=== PATIENT | female | born 1975 | race American Indian/Alaskan Native ===

== ENCOUNTER 2017-04-08 20:33 | Emergency (ER) | payer MEDICAID ==
[~2017-04-08] VITALS: Ht 172.7 cm; Wt 114.2 kg
[~2017-04-08 20:33] MED LIST: DIAZ5TAB PO; HYDR-3240 PO; LEVO500T33 PO
[2017-04-08 20:35] VITALS: BP 126/88
== END 2017-04-08 22:11 | disposition home or self-care (01) ==
LOC: ED 22:05
DX: S93.491A Sprain of other ligament of right ankle, initial encounter (principal); E11.9 Type 2 diabetes mellitus without complications; F17.210 Nicotine dependence, cigarettes, uncomplicated; X50.1XXA Overexertion from prolonged static or awkward postures, initial encounter; Y93.89 Activity, other specified; Y92.89 Other specified places as the place of occurrence of the external cause; Y99.8 Other external cause status
CPT/HCPCS: 99284

== ENCOUNTER 2017-04-28 16:28 | Emergency (ER) | payer MEDICAID ==
[~2017-04-28] VITALS: Ht 167.6 cm; Wt 114.0 kg
[2017-04-28 17:12] LABS: BLOOD UREA NITROGEN 8 mg/dL (7-18)
[2017-04-28 17:16] LABS: ACETAMINOPHEN < 2 mcg/mL (10-30)
[2017-04-28 17:20] LABS: DAU SCREEN DISCLAIMER
[2017-04-28 23:47] VITALS: BP 155/89
== END 2017-04-29 00:07 | disposition home or self-care (01) ==
LOC: ED 17:00
DX: T14.91 Suicide attempt (principal); F32.9 Major depressive disorder, single episode, unspecified; F41.9 Anxiety disorder, unspecified; F10.120 Alcohol abuse with intoxication, uncomplicated; E11.9 Type 2 diabetes mellitus without complications; F17.200 Nicotine dependence, unspecified, uncomplicated; X78.1XXA Intentional self-harm by knife, initial encounter; Y93.89 Activity, other specified; Y92.89 Other specified places as the place of occurrence of the external cause; Y99.8 Other external cause status
CPT/HCPCS: 36415; 80048; 80307; 80329; 82040; 84703; 85025; 99284; G0480

== ENCOUNTER 2018-05-03 09:18 | Emergency (ER) | payer MEDICAID ==
[~2018-05-03] VITALS: Ht 167.6 cm; Wt 107.0 kg
[~2018-05-03 09:18] MED LIST changes: -LEVO500T33 PO; +LEVO500T47 PO
[2018-05-03 09:46] VITALS: BP 120/70
[2018-05-03] MEDS ORDERED: KETOROLAC 30 MG/1 ML IM ONE (10:00)
[2018-05-03] MEDS ORDERED: CYCLOBENZAPRINE 10 MG TABLET PO ONE (10:00)
[2018-05-03] MEDS ORDERED: KETOROLAC 30 MG/1 ML ONE (10:06)
[2018-05-03] MEDS ORDERED: CYCLOBENZAPRINE 10 MG TABLET ONE (10:06)
[2018-05-03 10:29] LABS: TROPONIN I < 0.015 ng/mL (0.000-0.045)
== END 2018-05-03 11:29 | disposition home or self-care (01) ==
LOC: ED 11:23
DX: R07.89 Other chest pain (principal); S29.012A Strain of muscle and tendon of back wall of thorax, initial encounter; E11.9 Type 2 diabetes mellitus without complications; F41.1 Generalized anxiety disorder; F32.9 Major depressive disorder, single episode, unspecified; F17.200 Nicotine dependence, unspecified, uncomplicated; X58.XXXA Exposure to other specified factors, initial encounter; Y93.89 Activity, other specified; Y99.8 Other external cause status; Y92.89 Other specified places as the place of occurrence of the external cause
CPT/HCPCS: 36415; 71046; 84484; 93005; 96372; 99285; J1885

== ENCOUNTER 2019-03-04 20:09 | Emergency (ER) | payer MEDICAID ==
[~2019-03-04] VITALS: Ht 167.6 cm; Wt 120.0 kg
[2019-03-04 20:16] VITALS: BP 156/90
--- NOTE | 2019-03-04 21:01 | NUR ---
Back from CT, pt anxious, cooperative
--- NOTE | 2019-03-04 21:20 | NUR ---
Pt given gown to put on for pelvic exam. MD notified pt ready
== END 2019-03-04 22:19 | disposition home or self-care (01) ==
LOC: ED 22:07
DX: S20.211A Contusion of right front wall of thorax, initial encounter (principal); S09.8XXA Other specified injuries of head, initial encounter; F17.200 Nicotine dependence, unspecified, uncomplicated; E11.9 Type 2 diabetes mellitus without complications; T74.21XA Adult sexual abuse, confirmed, initial encounter; Y93.89 Activity, other specified; Y92.009 Unspecified place in unspecified non-institutional (private) residence as the place of occurrence of the external cause; Y99.8 Other external cause status
CPT/HCPCS: 70450; 99284

== ENCOUNTER 2019-03-26 18:35 | Emergency (ER) | payer MEDICAID ==
[~2019-03-26] VITALS: Ht 172.7 cm; Wt 120.0 kg
[2019-03-26] MEDS ORDERED: LORazepam 2 MG/ML, 1ML ONE (18:42)
[2019-03-26] MEDS ORDERED: DIPHENHYDRAMINE 50 MG/ML, 1ML ONE (18:42)
[2019-03-26] MEDS ORDERED: LIDOCAINE-MPF 1%, 5ML ONE (18:48)
[2019-03-26] MEDS ORDERED: LORazepam 2 MG/ML, 1ML IM ONE (19:00)
[2019-03-26] MEDS ORDERED: DIPHENHYDRAMINE 50 MG/ML, 1ML IM ONE (19:00)
[2019-03-26] MEDS ORDERED: PLEASE ENTER HEIGHT AND WEIGHT MC SCH (19:00)
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
[2019-03-26] MEDS ORDERED: NEOSPORIN OINT. PKT 1 PACKET ONE (19:42)
[2019-03-26] MEDS ORDERED: DIPH,PERTUSS(ACELL),TET VAC/PF 0.5 ML IM-VACC ONE ×2 (19:47→20:00)
[2019-03-26] MEDS ORDERED: LIDOCAINE-MPF 1%, 5ML INFIL ONE (20:00)
[2019-03-26] MEDS ORDERED: NEOSPORIN OINT. PKT 1 PACKET TP ONE (20:00)
--- NOTE | 2019-03-26 20:02 | NUR ---
PT CALM AND COOPERATIVE AT THIS TIME. RESTING WITH EYES CLOSED IN GURNEY. SIDE RAILS UP X2 FOR SAFETY. SUTURES COMPLETE. AWAITING NEOSPORIN FROM PHARMACY FOR DRESSING.
--- NOTE | 2019-03-26 21:56 | NUR ---
PT CALM AND COOPERATIVE AT THIS TIME. RESTING WITH EYES CLOSED IN GURNEY. SIDE RAILS UP X2 FOR SAFETY. PT IS NT CURRENTLY STABLE ON FEET AND CANNOT PERFORM ADLS. PLAN TO DC ONCE ABLE.
[2019-03-26 21:57] VITALS: BP 132/94
--- NOTE | 2019-03-26 22:10 | NUR ---
BEDSIDE REPORT FROM [facility]. PT LAYING IN GURNEY, PT MOSTLY DROWSY, MUMBLING TO SELF. WOUND CARE COMPLETE, BLEEDING APPEARS CONTROLED AT THIS TIME. BP/SPO2 MONITORING IN PLACE.
--- NOTE | 2019-03-27 00:25 | NUR ---
PT RESTING IN GURNEY, EVEN/REGULAR RESPIRATIONS NOTED. PT WITH FREQUENT MOANING AND KICKING LEGS. PT REMAINS MOSTLY DROWSY. BLEEDING REMAINS CONTROLED.
--- NOTE | 2019-03-27 00:41 | NUR ---
PT AMBULATED STEADILY TO BATHROOM WITH RN. DC EDUCATION PROVIDED, PT DEMONSTRATES UNDERSTANDING. PT TRANSFERED SELF TO WHEELCHAIR. PT WHEELED TO DC WITH RN. TAXI VOUCHER PROVIDED. PT REPORTS THAT SO IS HOME AND WILL CARE FOR HER ONCE SHE ARRIVES HOME.
== END 2019-03-27 00:44 | disposition home or self-care (01) ==
LOC: ED 19:17
DX: S61.412A Laceration without foreign body of left hand, initial encounter (principal); S61.411A Laceration without foreign body of right hand, initial encounter; F31.9 Bipolar disorder, unspecified; E11.9 Type 2 diabetes mellitus without complications; F17.200 Nicotine dependence, unspecified, uncomplicated; W01.118A Fall on same level from slipping, tripping and stumbling with subsequent striking against other sharp object, initial encounter; Y93.89 Activity, other specified; Y92.098 Other place in other non-institutional residence as the place of occurrence of the external cause; Y99.8 Other external cause status
CPT/HCPCS: 12041; 73130; 90471; 90715; 96372; 99285; J1200; J2060

== ENCOUNTER → 2020-05-21 | Outpatient (CLI) | payer MEDICAID | END | disposition home or self-care (01) | LOC: RAD 08:31 | PROVIDERS: ATTEND Internal Medicine | DX: S62.306A Unspecified fracture of fifth metacarpal bone, right hand, initial encounter for closed fracture (principal); X58.XXXA Exposure to other specified factors, initial encounter; Y93.89 Activity, other specified; Y92.89 Other specified places as the place of occurrence of the external cause; Y99.8 Other external cause status ==

== ENCOUNTER 2021-04-04 15:33 | Emergency (ER) | payer MEDICAID, OTHER ==
[~2021-04-04] VITALS: Ht 167.6 cm; Wt 143.5 kg
[~2021-04-04 15:33] MED LIST changes: +HYDR-2214 PO; -HYDR-3240 PO
--- NOTE | 2021-04-04 16:01 | NUR ---
PT HAS CO ABDOMINAL PAIN AND SWELLING AFTER EATING FOR A FEW WEAKS. DENIES CP, HAS N/V. STATES SHE IS SOB W ACTIVITY. HX DM2, HTN
[2021-04-04 16:34] LABS: BASOPHILS % (AUTO) 1 % (0-1); EOSINOPHILS % (AUTO) 7 % (1-7); LYMPHOCYTES % (AUTO) 24 % (22-44); MEAN CORPUSCULAR HEMOGLOBIN 32.5 pg (27.0-34.8); MEAN CORPUSCULAR HGB CONC 34.4 g/dL (32.4-35.8); MEAN PLATELET VOLUME 8.6 fL (7.4-10.4); MONOCYTES % (AUTO) 6 % (2-9); NEUTROPHILS % (AUTO) 63 % (42-75); PLATELET COUNT 356 x10^3/uL (130-400); RED BLOOD COUNT 4.66 x10^6/uL (3.82-5.3); RED CELL DISTRIBUTION WIDTH 13.4 % (9.6-15.2)
[2021-04-04 16:42] LABS: ALANINE AMINOTRANSFERASE 81 U/L (12-78); ALBUMIN 3.3 g/dL (3.4-5.0); ANION GAP 6 mmol/L (5-15); CALCIUM 8.5 mg/dL (8.5-10.1); CHLORIDE 106 mmol/L (98-107); CREATININE 0.62 mg/dL (0.55-1.02)
[2021-04-04 16:44] LABS: ALKALINE PHOSPHATASE 134 U/L (45-117); BILIRUBIN,TOTAL 0.2 mg/dL (0.2-1.0); TOTAL PROTEIN 7.2 g/dL (6.4-8.2)
--- NOTE | 2021-04-04 17:23 | NUR ---
Patient/Caregiver given discharge instructions and they have confirmed that they understand the instructions. Patient ambulatory with steady gait.
[2021-04-04 17:24] VITALS: BP 150/82
== END 2021-04-04 17:35 | disposition home or self-care (01) ==
LOC: ED 17:30
DX: K80.70 Calculus of gallbladder and bile duct without cholecystitis without obstruction (principal); E11.65 Type 2 diabetes mellitus with hyperglycemia; I10 Essential (primary) hypertension; G89.29 Other chronic pain; F17.210 Nicotine dependence, cigarettes, uncomplicated
CPT/HCPCS: 36415; 76700; 80053; 83605; 83690; 85025; 99284

== ENCOUNTER 2021-05-18 13:00 | Inpatient (IN) | payer MEDICAID ==
[~2021-05-18] VITALS: Ht 167.6 cm; Wt 143.0 kg
--- NOTE | 2021-05-18 13:19 | NUR ---
PT CHANGING INTO A GOWN. SBAR EXCHANGED W EMS AT THE BEDSIDE
--- NOTE | 2021-05-18 13:27 | NUR ---
pt ambulated to the restroom with a steady gait. urine sample provided and walked to the lab for analysis.
[2021-05-18] MEDS ORDERED: ONDANSETRON 2MG/ML, 2ML ONE (13:56)
[2021-05-18] MEDS ORDERED: HYDROmorphone 2 MG/ML, 1ML ONE ×2 (13:56→18:08)
[2021-05-18] MEDS ORDERED: HYDROmorphone 1 MG/ML, 1ML INJ IV ONE (14:00)
[2021-05-18] MEDS ORDERED: SODIUM CHLORIDE FLUSH 10ML SYR IVF ONE (14:00)
[2021-05-18] MEDS ORDERED: ONDANSETRON 2MG/ML, 2ML IVPush ONE (14:00)
[2021-05-18] MEDS ORDERED: SODIUM CHLORIDE 0.9% 1,000ML IVBOLUS ONE (14:00)
[2021-05-18 14:11] LABS: BASOPHILS % (AUTO) 1 % (0-1); EOSINOPHILS % (AUTO) 8 % (1-7); LYMPHOCYTES % (AUTO) 23 % (22-44); MEAN CORPUSCULAR HEMOGLOBIN 32.8 pg (27.0-34.8); MEAN CORPUSCULAR HGB CONC 34.2 g/dL (32.4-35.8); MEAN PLATELET VOLUME 8.8 fL (7.4-10.4); MONOCYTES % (AUTO) 6 % (2-9); NEUTROPHILS % (AUTO) 63 % (42-75); PLATELET COUNT 349 x10^3/uL (130-400); RED BLOOD COUNT 4.75 x10^6/uL (3.82-5.3); RED CELL DISTRIBUTION WIDTH 13.8 % (9.6-15.2)
--- NOTE | 2021-05-18 14:11 | NUR ---
[facility] IS AT THE BEDSIDE FOR STUDY.
[2021-05-18 14:16] LABS: MICROSCOPIC NOT IND
[2021-05-18 14:24] LABS: ALANINE AMINOTRANSFERASE 89 U/L (12-78); ALBUMIN 3.1 g/dL (3.4-5.0); ANION GAP 8 mmol/L (5-15); CALCIUM 8.8 mg/dL (8.5-10.1); CHLORIDE 104 mmol/L (98-107); CREATININE 0.65 mg/dL (0.55-1.02)
[2021-05-18 14:26] LABS: ALKALINE PHOSPHATASE 137 U/L (45-117); BILIRUBIN,TOTAL 0.3 mg/dL (0.2-1.0); TOTAL PROTEIN 7.4 g/dL (6.4-8.2)
[2021-05-18] MEDS ORDERED: INSULIN REGULAR 100 UNITS/ML, 3ML VIAL SQ-INSULIN ONE (15:37)
[2021-05-18] MEDS ORDERED: INSULIN SINGLE DOSE, ER ONE (15:42)
[2021-05-18] MEDS ORDERED: POLYETHYLENE GLYCOL 17 GM PACKET PO PRN (17:30)
[2021-05-18] MEDS ORDERED: ONDANSETRON 2MG/ML, 2ML IVPush PRN (17:30)
[2021-05-18] MEDS ORDERED: KETOROLAC 30 MG/1 ML IV PRN (17:30)
[2021-05-18] MEDS ORDERED: METRONIDAZOLE PMX 500MG/100ML 100 ML ONE (18:08)
[2021-05-18] MEDS ORDERED: INSULIN LISPRO SINGLE DOSE, ER SQ-INSULIN ONE (18:09)
[2021-05-18] MEDS: METRONIDAZOLE PMX 500MG/100ML 100 ML IV SCH ×2 (18:17→23:51)
[2021-05-18] MEDS: CEFTRIAXONE 2 GM in DEXTROSE 5% 50 ML IVPB SCH (18:17)
[2021-05-18] MEDS: INSULIN LISPRO 100 UNITS/ML, PEN SQ-INSULIN SCH ×2 (18:18→22:59)
[2021-05-18] MEDS: HYDROmorphone 2 MG/ML, 1ML IVPush PRN ×2 (18:19→23:53)
[2021-05-18] MEDS: NICOTINE 14MG/24 HR PATCH.TD24 TD SCH (20:30)
[2021-05-18 20:32] VITALS: BP 136/86
[2021-05-18] MEDS ORDERED: MELATONIN 5 MG TABLET PO PRN (21:00)
[2021-05-18] MEDS ORDERED: TRAZODONE 50MG TABLET PO PRN (21:00)
[2021-05-19 01:22] VITALS: BP 114/65
[2021-05-19] MEDS: METRONIDAZOLE PMX 500MG/100ML 100 ML IV SCH ×4 (05:09→23:58)
[2021-05-19] MEDS: HYDROmorphone 2 MG/ML, 1ML IVPush PRN ×2 (05:09→10:07)
[2021-05-19 05:55] LABS: ALBUMIN 2.9 g/dL (3.4-5.0); ANION GAP 5 mmol/L (5-15); CALCIUM 8.9 mg/dL (8.5-10.1); CHLORIDE 105 mmol/L (98-107)
[2021-05-19 05:59] LABS: ALANINE AMINOTRANSFERASE 103 U/L (12-78); ALKALINE PHOSPHATASE 96 U/L (45-117); BILIRUBIN,TOTAL 0.4 mg/dL (0.2-1.0); CREATININE 0.55 mg/dL (0.55-1.02); TOTAL PROTEIN 6.8 g/dL (6.4-8.2)
[2021-05-19 06:02] LABS: BASOPHILS % (AUTO) 1 % (0-1); EOSINOPHILS % (AUTO) 9 % (1-7); LYMPHOCYTES % (AUTO) 21 % (22-44); MEAN CORPUSCULAR HEMOGLOBIN 32.2 pg (27.0-34.8); MEAN CORPUSCULAR HGB CONC 33.5 g/dL (32.4-35.8); MEAN PLATELET VOLUME 8.6 fL (7.4-10.4); MONOCYTES % (AUTO) 6 % (2-9); NEUTROPHILS % (AUTO) 64 % (42-75); PLATELET COUNT 321 x10^3/uL (130-400); RED BLOOD COUNT 4.57 x10^6/uL (3.82-5.3); RED CELL DISTRIBUTION WIDTH 13.8 % (9.6-15.2)
[2021-05-19 07:25] VITALS: BP 114/74
[2021-05-19] MEDS: SENNA/DOCUSATE TABLET PO SCH (07:33)
[2021-05-19] MEDS: INSULIN LISPRO 100 UNITS/ML, PEN SQ-INSULIN SCH ×4 (08:42→22:32)
[2021-05-19] MEDS: POTASSIUM CHLORIDE 20 MEQ in SODIUM CHLORIDE 0.45% 1,000 ML IV SCH (10:41)
[2021-05-19 12:15] VITALS: BP 124/70
[2021-05-19 13:51] LABS: HCG UR SG 1.022 (1.003-1.030)
[2021-05-19] MEDS ORDERED: CHLORHEXIDINE 15 ML UDC PO ONE (16:00)
[2021-05-19] MEDS ORDERED: LACTATED RINGERS 1,000 ML IV SCH (16:30)
[2021-05-19] MEDS ORDERED: BUPIVACAINE/PF 0.5% ONE (17:22)
[2021-05-19] MEDS ORDERED: EPINEPHRINE 1 MG/ML, 1ML ONE (17:22)
[2021-05-19] MEDS ORDERED: FENTANYL PF 250 MCG/5ML ONE (17:23)
[2021-05-19] MEDS ORDERED: MIDAZOLAM 1 MG/ML, 2ML ONE (17:23)
[2021-05-19] MEDS ORDERED: PROPOFOL 10 MG/ML, 20ML ONE (17:24)
[2021-05-19] MEDS ORDERED: SUGAMMADEX 200 MG/2 ML IVPush ONE ×3 (17:45→19:01)
[2021-05-19] MEDS ORDERED: CEFOTETAN 2 GM ONE (17:46)
[2021-05-19] MEDS ORDERED: CEFOTETAN 1 GM ONE (17:46)
[2021-05-19] MEDS ORDERED: FENTANYL PF 100 MCG/2ML ONE ×2 (18:23→19:13)
[2021-05-19] MEDS ORDERED: METOCLOPRAMIDE 5 MG/ML, 2ML ONE (19:08)
[2021-05-19] MEDS ORDERED: OXYcodone 5 MG/5 ML ORAL.SOL UDC ONE (19:13)
[2021-05-19] MEDS ORDERED: ALBUTEROL SULFATE 2.5 MG/3 ML NPPB PRN (19:30)
[2021-05-19] MEDS ORDERED: LABETALOL 5MG/ML, 20ML IV PRN (19:30)
[2021-05-19] MEDS ORDERED: PROMETHAZINE 25 MG/ML, 1ML IVPush PRN (19:30)
[2021-05-19] MEDS ORDERED: OXYcodone 5 MG/5 ML ORAL.SOL UDC PO PRN (19:30)
[2021-05-19] MEDS ORDERED: MEPERIDINE/PF 25MG/0.5ML IVPush PRN (19:30)
[2021-05-19] MEDS ORDERED: LORazepam 2 MG/ML, 1ML IVPush PRN (19:30)
[2021-05-19] MEDS ORDERED: METHOCARBAMOL 1,000 MG in DEXTROSE 5% 100 ML IV PRN (19:30)
[2021-05-19] MEDS ORDERED: HYDROmorphone 1 MG/ML, 1ML INJ IVPush PRN (19:30)
[2021-05-19] MEDS ORDERED: FENTANYL PF 100 MCG/2ML IV PRN (19:30)
[2021-05-19] MEDS: hydrALAzine 20 MG/ML, 1ML IV PRN ×2 (19:35→20:00)
[2021-05-19] MEDS ORDERED: hydrALAzine 20 MG/ML, 1ML ONE (19:35)
[2021-05-19 20:33] VITALS: BP 139/82
[2021-05-19] MEDS: CEFTRIAXONE 2 GM in DEXTROSE 5% 50 ML IVPB SCH (21:42)
[2021-05-19] MEDS: NICOTINE 14MG/24 HR PATCH.TD24 TD SCH (21:43)
[2021-05-20] MEDS: HYDROmorphone 2 MG/ML, 1ML IVPush PRN ×2 (00:02→08:45)
[2021-05-20] MEDS: POTASSIUM CHLORIDE 20 MEQ in SODIUM CHLORIDE 0.45% 1,000 ML IV SCH ×2 (00:04→09:30)
[2021-05-20 03:20] VITALS: BP 133/79
[2021-05-20 05:38] LABS: BASOPHILS % (AUTO) 0 % (0-1); EOSINOPHILS % (AUTO) 1 % (1-7); LYMPHOCYTES % (AUTO) 7 % (22-44); MEAN CORPUSCULAR HGB CONC 33.6 g/dL (32.4-35.8); MEAN PLATELET VOLUME 9.1 fL (7.4-10.4); MONOCYTES % (AUTO) 2 % (2-9); NEUTROPHILS % (AUTO) 91 % (42-75); RED BLOOD COUNT 4.53 x10^6/uL (3.82-5.3)
[2021-05-20 05:42] LABS: MEAN CORPUSCULAR HEMOGLOBIN 32.5 pg (27.0-34.8); PLATELET COUNT 299 x10^3/uL (130-400)
[2021-05-20 05:46] LABS: ALANINE AMINOTRANSFERASE 178 U/L (12-78); ALBUMIN 2.9 g/dL (3.4-5.0); ANION GAP 7 mmol/L (5-15); CHLORIDE 103 mmol/L (98-107)
[2021-05-20 05:56] LABS: ALKALINE PHOSPHATASE 103 U/L (45-117); BILIRUBIN,TOTAL 0.3 mg/dL (0.2-1.0); CREATININE 0.74 mg/dL (0.55-1.02); TOTAL PROTEIN 7.1 g/dL (6.4-8.2)
[2021-05-20] MEDS: METRONIDAZOLE PMX 500MG/100ML 100 ML IV SCH ×2 (06:02→11:42)
[2021-05-20 08:00] VITALS: BP 130/86
[2021-05-20] MEDS: SENNA/DOCUSATE TABLET PO SCH (08:45)
[2021-05-20] MEDS: INSULIN LISPRO 100 UNITS/ML, PEN SQ-INSULIN SCH ×2 (08:46→11:42)
[2021-05-20] MEDS ORDERED: INSU100V13 SQ (10:55)
[2021-05-20] MEDS ORDERED: LISI-167 PO (10:55)
[2021-05-20] MEDS ORDERED: SENN-223 PO (10:55)
[2021-05-20] MEDS ORDERED: HYDR-2214 PO (10:55)
[2021-05-20] MEDS ORDERED: GLIP5TAB22 PO (10:55)
[2021-05-20] MEDS ORDERED: HYDROcodone/APAP 5/325 TABLET PO PRN (11:00)
[2021-05-20 12:48] VITALS: BP 129/76
== END 2021-05-20 13:00 | disposition home or self-care (01) | DRG 263 ==
LOC: SUATTDRO 17:05 → OR 17:40 → EDIP 17:59 → 4NE 19:28
PROVIDERS: ADMIT Internal Medicine; ATTEND Family Medicine
PROC: 8E0W4CZ Robotic Assisted Procedure of Trunk Region, Percutaneous Endoscopic Approach (ICD-10-PCS; 2021-05-19)
PROC: 0FT44ZZ Resection of Gallbladder, Percutaneous Endoscopic Approach (ICD-10-PCS; principal; 2021-05-19 17:00)
DX: K80.13 Calculus of gallbladder with acute and chronic cholecystitis with obstruction (principal); K76.0 Fatty (change of) liver, not elsewhere classified; E11.65 Type 2 diabetes mellitus with hyperglycemia; E66.01 Morbid (severe) obesity due to excess calories; Z68.42 Body mass index [BMI] 45.0-49.9, adult; Z72.0 Tobacco use; F31.9 Bipolar disorder, unspecified; F41.1 Generalized anxiety disorder; I10 Essential (primary) hypertension; K82.8 Other specified diseases of gallbladder; Z79.4 Long term (current) use of insulin; Z88.8 Allergy status to other drugs, medicaments and biological substances
CPT/HCPCS: 36415; 96361; 96374; 99285; S0020; 76700; 80053; 81003; 81025; 82962; 83036; 83605; 83690; 85025; 87040; 87635; 88304; G0378; J0171; J0696; J1170; J1885; J2250; J2405; J2704; J3010; J3480; C1760; J0360; J1815; J2765; J7030; J7120